=== PATIENT | female | born 2005 | race Caucasian/White ===

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

== ENCOUNTER 2024-10-20 14:58 | Outpatient (CLI) | payer BC, MEDICAID, SELFPAY ==
--- OUTSIDE RECORDS SUMMARY | 2024-10-24 10:21 | XMS_ITS | Clinical Summary ---
Author Organization [facility] Address [address] [place] [phone] Phone Care Team Providers Care Drum Maker Name Role Phone Unavailable Primary Care Provider Unavailabl e Allergies No known active allergies Medications No known medications Social History Tobacco Use Types Packs/Day Years Used Date Smoking Tobacco: Passive Smo ke Exposure - Never Smoker Smokeless Tobacco: Never Alcohol Use Standard Drinks/Week Comments Never 0 (1 standard drink = 0.6 oz pur e alcohol) Comments Unknown Sex and Gender Information Value Date Recorded Sex Assigned at Not on file Legal Sex Female 12:27 PM EST Gender Identity Not on file Sexual Orientation Not on file Obstetrics History Last Filed Vital Signs Vital Sign Reading Time Taken Comments Blood Pressure - - Pulse 105 03/06/2021 12:30 PM EST Temperature 36.8 C (98.2 F) 03/06/2021 12:30 PM EST Respiratory Rate 16 03/06/2021 12:3 0 PM EST Oxygen Saturation 100% 03/06/2021 12: 30 PM EST Inhaled Oxygen Concentration - - Weight 45.7 kg (100 lb 12.8 oz) 021 12:33 PM EST Height - - Body Mass Index - - Plan of Treatment Health Maintenance Due Date Last Done Comments Annual Wellness Exam 08/02/2007 Meningococcal B Vaccine (1 of 2 - Standard) 2020 COVID-19 Vaccine (3 - season) 2023 01/01/2021, 12/11/2020 Influenza Vaccine (Season Ended) 2024 05/20/2006 DTaP/TDaP/Td (7 - Td or Tdap) 11/08/2025 11/09/2015, 09/08/2008, 05/20/2006, Additional history exists Hepatitis B Vaccine Completed 08/13/2005, 2004, 2004 Pneumococcal Vaccine 0-49 Aged Out 2008, 01/09/2005, 2004 No longer eligible based on patient's age to complete this topic HPV Completed 12/03/2017, 11/09/2015 [facility] Subscriber Plan / Payer (Ef fective 2017-Present) Name:Montrell Bailey Relation to Subscriber:Child Name:ESTEE BAILEY Date of :1971 (Home) Address: [address] [place] [address] Payer ID:[id number] (NAIC) Type:Not on file Address: [address] [place] [address] [place] [address] [facility] Subscriber Plan / Payer (Ef fective 2017-Present) Name:Montrell Bailey Relation to Subscriber:Child Name:ESTEE BAILEY Date of :1971 (Home) Address: [address] [place] [address] Payer ID:[id number] (NAIC) Type:Not on file Address: [address] [place] [address] [place] [address] HEALTH PLAN BY [facility] [employer] [facility]
== END 2024-10-20 23:59 | disposition home or self-care (01) ==
LOC: LAB.DROPOF 10-24 10:20
PROVIDERS: PCP Student in an Organized Health Care Education/Training Program; Visit Provider Student in an Organized Health Care Education/Training Program
DX: N39.0 Urinary tract infection, site not specified (principal)
CPT/HCPCS: 87077; 87086